=== PATIENT | female | born 1970 | race African-American/Black ===

== ENCOUNTER 2020-01-09 12:22 | Emergency (ER) | payer BC ==
--- NOTE | 2020-01-09 12:27 | PDOC ---
History of Present Illness - General Chief Complaint: Blood Pressure Problem Stated Complaint: BLOOD PRESSURE EVAL Time Seen by Provider: 01/09/20 12:24 History Source: Patient Exam Limitations: No Limitations - History of Present Illness Initial Comments: 01/10/20 21:36 49F PMH HTN, HLD, WPW s/p ablation sent in by school RN for elevated BP (170s systolic) and dizziness. Pt has had frontal band like headache w/ dizziness described as mild room spinning x 2 days. Has had similar RIBERA in the past when her BP elevated. Denies f/c, numbness,tingling,focal weakness, vision/hearing changes, cp/sob, n/v/d, abdpain. Past History - Past Medical History Allergies/Adverse Reactions: Allergies Allergy/AdvReac Type Severity Reaction Status Date / Time No Known Allergies Allergy Verified 01/09/20 12:24 Home Medications: Ambulatory Orders Amlodipine Besylate [Norvasc -] 5 mg PO DAILY 01/09/20 Icosapent Ethyl [Vascepa] 1 cap PO DAILY 01/09/20 Cardiac Disorders: Yes (WPW) HTN: Yes - Surgical History Cardiac Surgery: Yes - Psycho Social/Smoking Cessation Hx Smoking History: Former smoker Have you smoked in the past 12 months: Yes 'Breaking Loose' booklet given: 08/22/16 Hx Alcohol Use: Yes Drug/Substance Use Hx: No Review of Systems - Review of Systems Able to Perform ROS?: Yes Comments:: 01/10/20 21:36 CONSTITUTIONAL: Denies F / C HEENT: endorses headache, dizziness. Denies changes in vision / hearing, diplopia, blurry vision, sore throat, rhinorrhea RESP: Denies SOB, cough, orthopnea, HERNANDEZ CARD: Denies chest pain, palpitations GI: Denies N / V / D, abdominal pain : Denies dysuria SKIN: Denies rashes NEURO: Denies numbness, tingling, weakness MSK: Denies back pain *Physical Exam - Physical Exam 01/10/20 21:37 GEN: Well appearing, NAD, comfortable. AAOx3. HEENT: NC/AT, CN II-XII intact, EOMI, PERRL. No facial asymmetry. Moist mucous membranes. Normal voice. Supple neck w/ FROM. CV: S1/S2, RRR, no m/r/g LUNG: CTAB, no wheezes, crackles, rales, rhonchi. GI: Soft, ndnt, +BS, no guarding, no rebound. No masses. Neg CVAT b/l. MSK: No obvious deformities of all extremities. FROM UE and LE b/l. SKIN: Warm, dry, no rashes appreciated. PSYCH: Normal mood and affect. NEURO: Moving all extremities well. 5/5 UE strength b/l. 5/5 LE strength b/l. Sensation symmetric and intact throughout. No ataxia on FTN. No pronator drift. Ambulates w/ normal gait. ED Treatment Course - LABORATORY CBC & Chemistry Diagram: 01/09/20 13:30 01/09/20 13:30 Medical Decision Making - Medical Decision Making 01/09/20 12:26 49F PMH HTN, HLD, WPW s/p ablation w/ frontal band like headache and mild dizziness sent in by RN for elevated BP. Unlikely HTN crisis. Likely frontal tension like headache. Given h/o similar headaches and story - unlikely migraine or ICH. - EKG - CBC, CMP - tylenol, reglan 01/09/20 13:07 rpt BP 131/79 01/09/20 14:43 labs reviewed pt improved dc home w/ pcp f/u Discharge - Discharge Information Problems reviewed: Yes Clinical Impression/Diagnosis: Headache, Hypertension Condition: Stable Disposition: HOME - Admission No - Follow up/Referral Referrals: Malik Crain [Primary Care Provider] - - Patient Discharge Instructions Patient Printed Discharge Instructions: DI for High Blood Pressure, DI for Headache Additional Instructions: Take an extra dose of your amlodipine tonight (01/09/20). Follow up with your primary care doctor in the next 3-5 days. Discuss your concerns about your current antihypertensive regiment - Consider an alternative Ca-Channel Ru or MARBELLA-inhibitor. Continue your home medications as prescribed. For headache; take tylenol or motrin as directed on the label. Drink plenty of fluids. Return to the nearest Emergency Department if you experience: - worsening or change in headache - changes in your vision, hearing - chest pain, shortness of breath - fevers - anything that concerns you - Post Discharge Activity
[2020-01-09 12:33] VITALS: TEMP 98.2; BMI 33.6
[2020-01-09] MEDS ORDERED: METOCLOPRAMIDE HCL INJECTION 10 MG/2 ML VIAL IVPUSH ONE (13:04)
[2020-01-09] MEDS ORDERED: ACETAMINOPHEN 1000 MG/100 ML VIAL (NON FORMULARY) IVPB ONE (13:04)
[2020-01-09] MEDS ORDERED: ACETAMINOPHEN INJECTION 100 ML IVPB ONE (13:13)
[2020-01-09] MEDS ORDERED: METOCLOPRAMIDE HCL INJECTION 10 MG/2 ML VIAL ONE (13:13)
[2020-01-09] MEDS ORDERED: amLODIPine BESYLATE 5 MG TABLET (FP) PO ONE (13:41)
[2020-01-09 14:04] LABS: BASO % 1.6 % (0-2.0); EOS % 1.1 % (0-4.5); HEMATOCRIT 42.6 % (32.4-45.2); HEMOGLOBIN 14.2 GM/dl (10.7-15.3); LYMPH % 30.3 % (8-40); MCH 32.5 pg (25.7-33.7); MCHC 33.4 g/dl (32.0-36.0); MEAN CELL VOLUME 97.4 fl (80-96); MEAN PLT VOLUME 9.5 fl (7.5-11.1); MONO % 3.7 % (3.8-10.2); NEUT % 63.3 % (42.8-82.8); PLATELET COUNT 259 K/MM3 (134-434); RBC 4.37 M/mm3 (3.60-5.2); RDW 12.8 % (11.6-15.6); WHITE BLOOD COUNT 7.2 K/mm3 (4.0-10.8)
--- NOTE | 2020-01-09 14:05 | EKG ---
Test Reason : Blood Pressure : / mmHG Vent. Rate : 065 BPM Atrial Rate : 065 BPM P-R Int : 202 ms QRS Dur : 086 ms QT Int : 390 ms P-R-T Axes : 047 065 061 degrees QTc Int : 405 ms NORMAL SINUS RHYTHM SEPTAL INFARCT , AGE UNDETERMINED T WAVE ABNORMALITY, CONSIDER LATERAL ISCHEMIA ABNORMAL ECG WHEN COMPARED WITH ECG OF 24-JUL-2002 15:34, [id number] IS NO LONGER PRESENT Confirmed by BEATRICE POLLARD MD ([id number]) on 01/09/2020 2:04:48 PM Referred By: CARY CARRERA Confirmed By:BEATRICE POLLARD MD
[2020-01-09 14:23] LABS: ALBUMIN 3.8 g/dl (3.4-5.0); BILIRUBIN,TOTAL 0.3 mg/dl (0.2-1); CALCIUM 8.5 mg/dl (8.5-10); CREATININE 0.7 mg/dl (0.55-1.3); POTASSIUM 3.7 mmol/L (3.5-5.1); TOT PROT 7.1 g/dl (6.4-8.2)
--- NOTE | 2020-01-09 14:33 | PDOC ---
Attending Attestation - Resident Resident Name: Andi Dunlap - ED Attending Attestation I have performed the following: I have examined & evaluated the patient, The case was reviewed & discussed with the resident, I agree w/resident's findings & plan - HPI HPI: 01/09/20 14:28 49-year-old female with history of hypertension controlled on amlodipine presents for evaluation of elevated blood pressure in the setting of headache for 2 days. Patient has history of similar headaches, described as gradual in onset and retro-orbital, persistent for 2 days which is not unusual, not associated with any vision change/speech change/nausea/vomiting/focal deficit, no fevers or chills. 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 Patient has no symptoms of endorgan injury. She is compliant with her medications, but states that her primary physician is planning to increase her amlodipine dose because of elevated blood pressure in the past, however she is resistant sec ondary to a side effect of leg edema at the increased dose. - Physicial Exam PE: 01/09/20 14:33 Blood pressure initially 170/102, now 122/70 on my examination after receiving pain medication for headache Well-appearing lying comfortably in stretcher speaking full sentences and joking and smiling Pupils are equal round reactive to light, extraocular movements are intact No JVD Heart is regular without murmur, lungs are clear Abdomen benign No edema - Medical Decision Making 01/09/20 14:33 49-year-old female with history of headache and hypertension presents with elevated blood pressure in the setting of 2 days of gradual onset headache. Headache has no red flags on history or physical exam, resolved after Tylenol and Reglan. Elevated blood pressure has no red flags on history or physical exam, no evidence of endorgan injury. Blood pressure improved after pain medications for headache. Labs are within normal limits EKG shows no acute abnormalities with chronic T wave abnormalities dating back to 2017 Blood pressure improved Counseled on medication options and follow-up with PCP, as well as follow-up with neurologist for possible primary headache diagnosis Agrees with discharge plan and understands return criteria Heart Score/ECG Review #1 ECG reviewed & interpreted by me at: 13:27 General ECG Interpretation: Sinus Rhythm, Normal Rate (65), Normal Intervals (qtc 405), No acute ischemic changes (TWI I/AVL, V4-6) Compared to previous ECG there are: No significant change (c/w 08/24/16)
[2020-01-09 14:47] VITALS: BP 124/74; PULSE 71
== END 2020-01-09 14:56 | disposition home or self-care (01) ==
LOC: FER 12:22
PROC: 3E033NZ Introduction of Analgesics, Hypnotics, Sedatives into Peripheral Vein, Percutaneous Approach (ICD-10-PCS; principal; 2020-01-09)
PROC: 3E033GC Introduction of Other Therapeutic Substance into Peripheral Vein, Percutaneous Approach (ICD-10-PCS; 2020-01-09)
DX: I10 Essential (primary) hypertension (principal); R51 Headache; E78.5 Hyperlipidemia, unspecified; I45.6 Pre-excitation syndrome
CPT/HCPCS: 36415; 80053; 85025; 93005; 99284-25; J0131